=== PATIENT | male | born 1965 | race Two or more races ===

== ENCOUNTER 2017-04-14 10:13 | Emergency (ER) | payer OTHER ==
[2017-04-14 10:17] VITALS: TEMP 98.4; BMI 28.0
--- NOTE | 2017-04-14 10:49 | PDOC ---
History of Present Illness - General Chief Complaint: Laceration Stated Complaint: FACE LACERATION Time Seen by Provider: 04/14/17 10:47 Past History - Past Medical History Allergies/Adverse Reactions: Allergies Allergy/AdvReac Type Severity Reaction Status Date / Time No Known Allergies Allergy Verified 04/14/17 10:17 HTN: Yes - Suicide/Smoking/Psychosocial Hx Smoking History: Never smoked Have you smoked in the past 12 months: No Hx Alcohol Use: No Drug/Substance Use Hx: No Substance Use Type: None *Physical Exam - Vital Signs Last Vital Signs Temp Pulse Resp BP Pulse Ox 98.4 F 73 20 179/103 98 04/14/17 10:15 04/14/17 10:15 04/14/17 10:15 04/14/17 10:15 04/14/17 10:15
--- NOTE | 2017-04-14 10:50 | PDOC ---
*Physical Exam - Vital Signs Last Vital Signs Temp Pulse Resp BP Pulse Ox 98.4 F 73 20 179/103 98 04/14/17 10:15 04/14/17 10:15 04/14/17 10:15 04/14/17 10:15 04/14/17 10:15 Medical Decision Making - Medical Decision Making 04/14/17 11:41 Pt seen by the Advanced Practice Provider under my direct supervision Ancillary studies reviewed. Repeat BP 140/78. I agree with plan as outlined by the Advanced Practice Provider. *DC/Admit/Observation/Transfer Diagnosis at time of Disposition: Laceration - Discharge Dispostion Disposition: HOME - Referrals Referrals: Alli Jones MD [Primary Care Provider] - - Patient Instructions Additional Instructions: keep the area clean and dry DO NOT GET WET the strips will peel off on own in about 3-5 days do not pick them off, you can cover with a bandaid if needed take motrin for any pain follow with your doctor in 1-2 days for follow up any worsening symptoms return to the ER
[2017-04-14] MEDS ORDERED: IBUPROFEN 400 MG TABLET (FP) PO ONE ×2 (11:20→11:47)
[2017-04-14] MEDS ORDERED: DIPHTH,PERTUSS(ACELL),TET 0.5 ML DISP.SYRIN IM ONE (11:21)
--- NOTE | 2017-04-14 11:29 | PDOC ---
History of Present Illness - General Chief Complaint: Laceration Stated Complaint: FACE LACERATION Time Seen by Provider: 04/14/17 10:47 History Source: Patient Exam Limitations: No Limitations - History of Present Illness Initial Comments: 04/14/17 12:38 52 yr male at work today states he had a piece of metal hit him in the left cheek. Pt was wearing his glasses. no head trauma no LOC. Lac to the cheek. tetnaus unknown. Pt has no headache , history of HTN on hyzaar 100/25mg daily did not take today. Timing/Duration: reports: just prior to arrival Severity: Yes: mild Location: reports: face Respiratory Risk Factors: reports: no cause identified Past History - Past Medical History Allergies/Adverse Reactions: Allergies Allergy/AdvReac Type Severity Reaction Status Date / Time No Known Allergies Allergy Verified 04/14/17 10:17 Home Medications: Ambulatory Orders Ibuprofen 600 mg PO TID PRN #20 tablet 04/14/17 HTN: Yes - Suicide/Smoking/Psychosocial Hx Smoking History: Never smoked Have you smoked in the past 12 months: No Hx Alcohol Use: No Drug/Substance Use Hx: No Substance Use Type: None Review of Systems - Review of Systems Able to Perform ROS?: Yes Comments:: 04/14/17 12:39 Is the patient limited Ukrainian proficient: No Constitutional: No: Symptoms Reported HEENTM: No: Symptoms Reported Respiratory: No: Symptoms reported Cardiac (ROS): No: Symptoms Reported ABD/GI: No: Symptoms Reported, Other : No: Symptoms Reported Musculoskeletal: No: Symptoms Reported Integumentary: Yes: See HPI *Physical Exam - Vital Signs Last Vital Signs Temp Pulse Resp BP Pulse Ox 98.4 F 73 20 179/103 98 04/14/17 10:15 04/14/17 10:15 04/14/17 10:15 04/14/17 10:15 04/14/17 10:15 - Physical Exam General Appearance: Yes: Nourished, Appropriately Dressed HEENT: positive: EOMI, ASAD, Other (neg orbital tenderness, neg maxillary tenderness ) Neck: positive: Supple Respiratory/Chest: positive: Lungs Clear, Normal Breath Sounds Cardiovascular: positive: Regular Rhythm, Regular Rate Gastrointestinal/Abdominal: positive: Normal Bowel Sounds, Soft Musculoskeletal: positive: Normal Inspection Extremity: positive: Normal Capillary Refill, Normal Inspection, Normal Range of Motion Integumentary: positive: Normal Color, Dry, Warm, Other (left cheek with 1.5cm linear superficial laceration no active bleeding ) Neurologic: positive: parking lot attendant II-XII NML intact, Fully Oriented, Alert, Normal Mood/ Affect, Normal Response, Motor Strength 5/5 Procedures - Laceration/Wound Repair Left Face Wound Length: to 2.5 cm Wound Explored: clean Wound's Depth, Shape: superficial, linear Irrigated w/ Saline: Yes Betadine Prep: Yes Wound Repaired With: Steri-strips Sterile Dressing Applied: No Medical Decision Making - Medical Decision Making 04/14/17 12:40 cc: laceration to the left cheek at work no LOC no headache or dizzyness pt states "I am angry this happened " admits to not taking his BP meds today conformed with [facility] that pt takes hyzaar 100/25mg and will give one dose here in ER as bp IS ELEVATED pt has no symptoms BP rechecked after BP 159/89 and will dc home with strict follow up pt states he feels better *DC/Admit/Observation/Transfer Diagnosis at time of Disposition: Laceration - Discharge Dispostion Disposition: HOME - Prescriptions Prescriptions: Ibuprofen 600 mg PO TID PRN #20 tablet PRN Reason: Pain - Referrals Referrals: Alli Jones MD [Primary Care Provider] - - Patient Instructions Printed Discharge Instructions: DI for Laceration Repair Steri-Strips Additional Instructions: keep the area clean and dry DO NOT GET WET the strips will peel off on own in about 3-5 days do not pick them off, you can cover with a bandaid if needed take motrin for any pain follow with your doctor in 1-2 days for follow up any worsening symptoms return to the ER
[2017-04-14] MEDS ORDERED: LOSARTAN 50MG/HCTZ 12.5MG 1 TAB (FP) PO ONE (12:02)
[2017-04-14 12:15] VITALS: BP 182/110; PULSE 71
== END 2017-04-14 13:21 | disposition home or self-care (01) ==
LOC: JERFT 10:13 → JER 10:13
PROC: 3E0234Z Introduction of Serum, Toxoid and Vaccine into Muscle, Percutaneous Approach (ICD-10-PCS; principal; 2017-04-14)
DX: S01.412A Laceration without foreign body of left cheek and temporomandibular area, initial encounter (principal); R05 Cough; I10 Essential (primary) hypertension
CPT/HCPCS: 90715; 99282-25